=== PATIENT | female | born 1960 | race African-American/Black ===

== ENCOUNTER 2016-05-02 15:51 | Emergency (ER) | payer OTHER ==
[2016-05-02 16:10] VITALS: BP 138/70
[2016-05-02 22:22] LABS: Hematocrit 39 % (35-47); Hemoglobin 12.2 g/dl (12.0-16.0); Mean Corpuscular HGB Conc 32 g/dl (31-36); Mean Corpuscular Hemoglobin 27 pg (27-31); Mean Corpuscular Volume 86 fL (80-97); Mean Platelet Volume 8 um3 (7.4-10.4); Red Blood Count 4.49 10^6/ul (4.0-5.4); Red Cell Distribution Width 17 % (10.5-15); White Blood Count 5.8 10^3/ul (3.5-10.8)
[2016-05-02 22:33] LABS: ALT 16 U/L (7-52); AST 16 U/L (13-39); Albumin 3.8 g/dL (3.2-5.2); Alkaline Phosphatase 111 U/L (34-104); Anion Gap 11 mmol/L (2-11); BUN/Creatinine Ratio 13.7 (8-20); Blood Urea Nitrogen 10 mg/dL (6-24); CO2 Carbon Dioxide 22 mmol/L (22-32); Calcium 8.9 mg/dL (8.6-10.3); Chloride 107 mmol/L (101-111); EGFR African American 106.4 (>60); EGFR Non-African American 82.8 (>60); Globulin 3.2 g/dL (2-4); Glucose 81 mg/dL (70-100); Potassium 3.8 mmol/L (3.5-5.0); Sodium 140 mmol/L (133-145)
[2016-05-02 23:06] LABS: Acetaminophen < 15 mcg/mL; Alcohol 77 mg/dL (<10); Salicylate < 2.50 mg/dL (<30)
[2016-05-02 23:16] LABS: TSH (Thyroid Stimulating Horm) 1.51 mcIU/mL (0.34-5.60)
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
== END 2016-05-03 04:29 | disposition home or self-care (01) ==
LOC: ED 15:51
DX: F32.9 Major depressive disorder, single episode, unspecified (principal); F17.210 Nicotine dependence, cigarettes, uncomplicated; F41.9 Anxiety disorder, unspecified
CPT/HCPCS: 36415; 80053; 80320; 80329; 84443; 85025; 99285; G0480

== ENCOUNTER → 2016-09-14 18:39 | Emergency (ER) | payer OTHER ==
[~2016-09-14 18:39] MED LIST: Haloperidol INJ IV/IM* 5 MG/ML AMP IM ONE; Haloperidol INJ IV/IM* 5 MG/ML AMP IV SLOW PU ONE; LORazepam INJ* 2 MG/ML 1 ML VIAL IM ONE; LORazepam INJ* 2 MG/ML 1 ML VIAL ONE; diPHENhydraMINE IV* 50 MG/ML 1 ml VIAL (BENADRYL) IM ONE; diPHENhydraMINE IV* 50 MG/ML 1 ml VIAL (BENADRYL) IV ONE
[2016-09-14 19:16] VITALS: BP 157/109
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
--- NOTE | 2016-09-15 04:56 | ED ---
Gonsalo Cai Aidan, scribed for Sanju Palmer on 09/15/16 at 0308 . Progress - Progress Note Progress Note: The patient has sobered up and can now be discharged with a diagnosis of alcohol intoxication. Course/Dx - Course Course Of Treatment: 56 yo female here with alcohol intoxication pt was belligerent and required chemical sedation for behavior. Pt will be signed out to Dr. Palmer for discharge in the am - Diagnoses Provider Diagnoses: Alcohol intoxication The documentation as recorded by the Gonsalo velasquez Aidan accurately reflects the service I personally performed and the decisions made by Spencer fraire Emmanuel.
== END ==
LOC: ED 18:39
DX: F10.129 Alcohol abuse with intoxication, unspecified (principal)
CPT/HCPCS: 96374; 96375; 99284; J1200; J1630; J2060

== ENCOUNTER 2017-10-26 21:09 | Emergency (ER) | payer OTHER ==
[2017-10-26] MEDS ORDERED: Haloperidol INJ IV/IM* 5 MG/ML AMP ONE (21:14)
[2017-10-26] MEDS ORDERED: LORazepam INJ* 2 MG/ML 1 ML VIAL ONE (21:14)
[2017-10-26] MEDS ORDERED: Haloperidol INJ IV/IM* 5 MG/ML AMP IM ONE (21:15)
[2017-10-26] MEDS ORDERED: LORazepam INJ* 2 MG/ML 1 ML VIAL IM ONE (21:15)
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
[2017-10-27 04:58] VITALS: BP 135/104
== END 2017-10-27 05:00 | disposition home or self-care (01) ==
LOC: ED 21:09
DX: F10.129 Alcohol abuse with intoxication, unspecified (principal); Q28.9 Congenital malformation of circulatory system, unspecified; I34.1 Nonrheumatic mitral (valve) prolapse; I50.9 Heart failure, unspecified; F41.9 Anxiety disorder, unspecified; F32.9 Major depressive disorder, single episode, unspecified; F43.10 Post-traumatic stress disorder, unspecified; Z88.5 Allergy status to narcotic agent; Z88.8 Allergy status to other drugs, medicaments and biological substances
CPT/HCPCS: 96372; 99284; J1630; J2060

== ENCOUNTER 2018-09-11 18:12 | Emergency (ER) | payer OTHER ==
[~2018-09-11 18:12] MED LIST changes: -Haloperidol INJ IV/IM* 5 MG/ML AMP IM ONE; -Haloperidol INJ IV/IM* 5 MG/ML AMP IV SLOW PU ONE; +Haloperidol INJ IV/IM* 5 MG/ML AMP ONE; -LORazepam INJ* 2 MG/ML 1 ML VIAL IM ONE; -diPHENhydraMINE IV* 50 MG/ML 1 ml VIAL (BENADRYL) IM ONE; -diPHENhydraMINE IV* 50 MG/ML 1 ml VIAL (BENADRYL) IV ONE; +diPHENhydraMINE IV* 50 MG/ML 1 ml VIAL (BENADRYL) ONE
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
[2018-09-11 19:14] LABS: Urine Benzodiazepine Screen None Detected (None Detect); Urine Opiates Screen None Detected (None Detect)
[2018-09-11 19:21] LABS: ABS Eosinophils 0.1 10^3/ul (0-0.6); ABS Lymphocytes 2.7 10^3/ul (1.0-4.8); ABS Monocytes 0.8 10^3/ul (0-0.8); ABS Neutrophils 4.6 10^3/ul (1.5-7.7); Eosinophil % 0.8 %; Hematocrit 38 % (35-47); Hemoglobin 12.5 g/dL (12.0-16.0); Mean Corpuscular HGB Conc 33 g/dL (31-36); Mean Corpuscular Hemoglobin 30 pg (27-31); Mean Corpuscular Volume 92 fL (80-97); Mean Platelet Volume 7.9 fL (7.4-10.4); Nucleated Red Blood Cells % 0.1; Platelet Count 293 10^3/uL (150-450); Red Blood Count 4.18 10^6 /uL (3.70-4.87); Red Cell Distribution Width 18 % (10.5-15); White Blood Count 8.2 10^3/uL (3.5-10.8)
[2018-09-11 19:44] LABS: ALT 18 U/L (7-52); AST 19 U/L (13-39); Albumin/Globulin Ratio 1.5 (1-3); Alkaline Phosphatase 114 U/L (34-104); Anion Gap 8 mmol/L (2-11); Blood Urea Nitrogen 15 mg/dL (6-24); CO2 Carbon Dioxide 21 mmol/L (22-32); Calcium 8.7 mg/dL (8.6-10.3); Chloride 103 mmol/L (101-111); Creatine Kinase 142 U/L (10-223); EGFR African American 90.8 (>60); Globulin 2.7 g/dL (2-4); Glucose 82 mg/dL (70-100); Potassium 3.8 mmol/L (3.5-5.0); Sodium 132 mmol/L (135-145); Total Protein 6.7 g/dL (6.4-8.9)
[2018-09-11 20:02] LABS: Acetaminophen < 15 mcg/mL; Alcohol 307 mg/dL (<10); Salicylate < 2.50 mg/dL (<30)
[2018-09-11 20:15] LABS: TSH (Thyroid Stimulating Horm) 1.41 mcIU/mL (0.34-5.60)
[2018-09-11] MEDS ORDERED: LORazepam INJ* 2 MG/ML 1 ML VIAL ONE (22:14)
[2018-09-11] MEDS ORDERED: Lorazepam PYXIS KEY ONE (22:14)
[2018-09-11] MEDS ORDERED: Haloperidol INJ IV/IM* 5 MG/ML AMP IM ONE (22:20)
[2018-09-11] MEDS ORDERED: diPHENhydraMINE IV* 50 MG/ML 1 ml VIAL (BENADRYL) IM ONE (22:20)
[2018-09-11] MEDS ORDERED: Haloperidol INJ IV/IM* 5 MG/ML AMP ONE (22:21)
[2018-09-11] MEDS ORDERED: diPHENhydraMINE IV* 50 MG/ML 1 ml VIAL (BENADRYL) ONE (22:21)
--- NOTE | 2018-09-12 06:32 | ED ---
Progress - Progress Note Progress Note: The patient is a sign-out to Dr. Sanju Palmer MD, from Dr. Shauna Gudino MD, at change of shift at 2200 pending MHE and disposition. The patient is a sign-out to Dr. Miles Whatley MD, from Dr. Sanju Palmer MD at change of shift at 0700 pending MHE and disposition. - Consult/PCP Time Called: 04:45 Re-Evaluation - Re-Evaluation First Eval Re-Evaluation Time: 19:00 Change: Unchanged Comment: patient is sleeping with snoring respirations. Third Eval Re-Evaluation Time: 22:12 Change: Unchanged Comment: Patient is awake. She tore off her lower scrubs. She insists she was not drinking. Pt is slurring her speech and swaying unsteadily while standing and had tried to climb off the stretcher. She needs medication to keep her calm and safe. Dr. Palmer will medicate with Bendaryl 50mg and Haldol 5mg IM. Second Eval Re-Evaluation Time: 21:00 Change: Unchanged Comment: Patient is sleeping and rouses to touch Course/Dx - Diagnoses Provider Diagnoses: Homicidal ideation, Suicidal ideation, Alcohol intoxication, Aggressive behavior - Critical Care Time Critical Care Time: 30-74 min - 30 mins Discharge - Sign-Out/Discharge Documenting (check all that apply): Sign-Out Patient Signing out patient TO: Miles Whatley - Patient is a sign-out to Dr. Whatley at change of shift pending MHE and disposition. Patient Received Moderate/Deep Sedation with Procedure: No - Discharge Plan Condition: Stable Referrals: Tray Alegria MD [Primary Care Provider] - - Billing Disposition and Condition Condition: STABLE - Attestation Statements Document Initiated by Scribe: Yes Documenting Scribe: Keyana Montes Provider For Whom Enrique is Documenting (Include Credential): Dr. Sanju Palmer MD Scribe Attestation: Keyana Cai scribed for Dr. Sanju Palmer MD on 09/12/18 at 0634. Scribe Documentation Reviewed: Yes Provider Attestation: The documentation as recorded by the Keyana velasquez accurately reflects the service I personally performed and the decisions made by me, Dr. Sanju Palmer MD Status of Scribe Document: Viewed
[2018-09-12 07:29] VITALS: BP 147/83
--- NOTE | 2018-09-12 08:07 | ED ---
Progress - Progress Note Progress Note: This pt was signed out by Dr. Palmer at shift change, pending disposition, awaiting mental health evaluation. Pt had a mental health evaluation and her case was reviewed by Dr. Joshua, psychiatrist. Dr. Joshua cleared the pt for discharged. Pt will be discharged home with referral for outpatient alcohol treatment. Course/Dx - Diagnoses Provider Diagnoses: Alcohol intoxication Discharge - Sign-Out/Discharge Documenting (check all that apply): Patient Departure - Discharge home, Receiving Sign-Out Receiving patient FROM: Sanju Spencer Patient Received Moderate/Deep Sedation with Procedure: No - Discharge Plan Condition: Stable Disposition: HOME Patient Education Materials: Alcohol Intoxication (ED), Alcohol Use Disorder ( ED) Referrals: Tray Alegria MD [Primary Care Provider] - Additional Instructions: Per completion of a mental health evaluation, you are cleared for release and do not require inpatient psychiatric hospitalization at this time. Please go to nearest emergency room or call 911 if safety concerns arise or condition worsens. Important Phone Numbers: [facility] [phone] Suicide Prevention and Crisis Services........................ [phone] National Suicide Prevention Lifeline............................ 020-469-KPYR (2148) [facility]....................... [phone] Alcoholics Anonymous............................................... [phone] [facility].............. [phone] [place] [employer].............................................. [phone] Substance Abuse Treatment Programs [facility] - Attestation Statements Document Initiated by Scribe: Yes Documenting Scribe: Kasey Badillo Provider For Whom Scribe is Documenting (Include Credential): Miles Whatley MD Scribe Attestation: Kasey Cai, scribed for Miles Whatley MD on 09/12/18 at 0808. Status of Scribe Document: Ready
== END 2018-09-12 07:25 | disposition home or self-care (01) ==
LOC: ED 18:12
DX: R45.851 Suicidal ideations (principal); R45.850 Homicidal ideations; F10.129 Alcohol abuse with intoxication, unspecified; R45.6 Violent behavior; I10 Essential (primary) hypertension; Z79.01 Long term (current) use of anticoagulants; Z88.5 Allergy status to narcotic agent; Z88.8 Allergy status to other drugs, medicaments and biological substances; F17.210 Nicotine dependence, cigarettes, uncomplicated
CPT/HCPCS: 36415; 80053; 80307; 80320; 80329; 82550; 84443; 85025; 96372; 99285; G0480; J1200; J1630; J2060

== ENCOUNTER 2020-12-28 11:15 | Inpatient (IN) ==
[2020-12-28] MEDS ORDERED: ceFAZolin 1 GM ADVAN 1 GM ADDV.VIAL IVPB ONE (13:01)
[2020-12-28] MEDS ORDERED: ceFAZolin 2 GM in NS PREMIX 2 GM/100 ML BAG IVPB ONE (13:01)
[2020-12-28] MEDS ORDERED: Lidocaine 2% PF 5 ML VIAL ONE (13:05)
[2020-12-28] MEDS ORDERED: Propofol 10 MG/ML 20 ML BTL ONE ×2 (13:05→17:35)
[2020-12-28] MEDS ORDERED: Ketamine HCL 50 mg/ml 10 ml VIAL (500 MG) ONE (13:05)
[2020-12-28] MEDS ORDERED: Ondansetron 4 mg VIAL 2 MG/ML 2 ml VIAL ONE (13:55)
[2020-12-28] MEDS ORDERED: Dexamethasone IV 4 MG/ML VIAL 1 ml VIAL ONE (14:23)
[2020-12-28] MEDS ORDERED: Midazolam 5 mg/5 ml VIAL 1 mg/ml 5 ml VIAL (5 mg) ONE (14:23)
[2020-12-28] MEDS ORDERED: ROPIVACAINE 5 MG/ML 30 ML BTL (0.5%) ONE (14:25)
[2020-12-28] MEDS ORDERED: Midazolam 2 mg/2 ml VIAL 1 mg/ml 2 ml VIAL (2 mg) ONE (16:06)
[2020-12-28] MEDS ORDERED: Glycopyrrolate IV 0.2 MG/ML 1 ML VIAL ONE (16:18)
[2020-12-28] MEDS ORDERED: EPHEDrine (Pressors) 50 MG/ML VIAL ONE (16:18)
[2020-12-28] MEDS ORDERED: Phenylephrine 40 mcg/mL 10mL (400mcg) SYRINGE ONE (16:21)
[2020-12-28] MEDS ORDERED: Lactulose 30 ml UDC PO PRN (17:09)
[2020-12-28] MEDS ORDERED: Ondansetron ODT 4 mg TAB 4 MG TAB PO PRN (17:09)
[2020-12-28] MEDS ORDERED: diPHENhydraMINE IV 50 MG/ML 1 ml VIAL (BENADRYL) IV PRN ×2 (17:09→17:30)
[2020-12-28] MEDS ORDERED: Magnesium Hydroxide LIQ 30 ML UDC PO PRN (17:09)
[2020-12-28] MEDS ORDERED: Ondansetron 4 mg VIAL 2 MG/ML 2 ml VIAL IV PRN ×2 (17:09→17:30)
[2020-12-28] MEDS ORDERED: diPHENhydraMINE 25 mg TAB PO PRN (17:09)
[2020-12-28] MEDS ORDERED: HYDROmorphone 1 MG/1 ML SYRINGE IV PRN ×2 (17:19→17:30)
[2020-12-28] MEDS ORDERED: HYDROcodone/ACETAMIN 5/325 mg TAB PO PRN (17:30)
[2020-12-28] MEDS ORDERED: Naloxone 0.4 mg VIAL 0.4 mg/ml 1 ml VIAL IV PRN (17:30)
[2020-12-28] MEDS ORDERED: Metoclopramide 5 MG/ML VIAL (10 mg) IV PRN (17:30)
[2020-12-28] MEDS ORDERED: fentaNYL 100 mcg/2 ml 50 MCG/ML VIAL IV PRN (17:30)
[2020-12-28] MEDS ORDERED: Lactated Ringers 1000 ml BAG 1,000 ML IV SCH (18:00)
[2020-12-28] MEDS ORDERED: HYDROcodone/ACETAMIN 5/325 mg TAB ONE (20:05)
[2020-12-28] MEDS ORDERED: oxyCODONE/Acetamin 5/325 mg TAB PO PRN (20:22)
[2020-12-28] MEDS: Magnesium Hydroxide LIQ 30 ML UDC PO SCH (22:46)
[2020-12-29] MEDS: ceFAZolin 1 GM ADVAN 1 GM in NS 0.9% 50 ML 50 ML IVPB SCH ×3 (00:58→15:46)
[2020-12-29] MEDS: Magnesium Hydroxide LIQ 30 ML UDC PO SCH (07:38)
[2020-12-29 07:44] LABS: Hematocrit 35 % (35-47); Hemoglobin 11.7 g/dL (12.0-16.0); Mean Platelet Volume 8.1 fL (7.4-10.4); Platelet Count 241 10^3/uL (150-450)
[2020-12-29 08:03] LABS: Calcium 8.7 mg/dL (8.6-10.3); EGFR African American 81.7 (>60); EGFR Non-African American 67.5 (>60)
[2020-12-29] MEDS ORDERED: Vitamin THERAPEUTIC TAB PO SCH (09:00)
[2020-12-29] MEDS ORDERED: Irbesartan 150 mg TAB (NF) PO SCH (09:00)
[2020-12-29 12:46] VITALS: BP 98/51
== END 2020-12-29 15:55 | disposition home health service (06) | DRG 302 ==
LOC: AA 11:15 → SSU 19:38
PROVIDERS: ADMIT Orthopaedic Surgery Adult Reconstructive Orthopaedic Surgery; ATTEND Orthopaedic Surgery Adult Reconstructive Orthopaedic Surgery